=== PATIENT | female | born 1965 ===

== ENCOUNTER 2017-09-28 09:44 | Day surgery (SDC) | payer OTHER ==
[~2017-09-28] VITALS: Ht 160 cm; Wt 76.7 kg
[~2017-09-28 09:44] MED LIST: CHOL10002 PO; CYCL10 PO; DOXE10; LOSA50 PO; METF500C PO; TOPI50 PO
== END 2017-09-28 22:37 | disposition home or self-care (01) ==
LOC: ORSCMMR 09:44 → ORD 10:30 → ORSCMMR 22:37
PROVIDERS: Internal Medicine Gastroenterology
PROC: 0DJD8ZZ Inspection of Lower Intestinal Tract, Via Natural or Artificial Opening Endoscopic (ICD-10-PCS; principal; 2017-09-28 10:30)
DX: Z12.11 Encounter for screening for malignant neoplasm of colon (principal); K57.30 Diverticulosis of large intestine without perforation or abscess without bleeding; I10 Essential (primary) hypertension; E28.2 Polycystic ovarian syndrome; F41.9 Anxiety disorder, unspecified; Z79.899 Other long term (current) drug therapy
CPT/HCPCS: J7120

== ENCOUNTER → 2018-07-17 | Outpatient (CLI) | payer OTHER | LOC: LAB 16:50 → LAB SHORT 16:50 | DX: R21 Rash and other nonspecific skin eruption (principal) | CPT/HCPCS: 87798 ==

== ENCOUNTER 2019-11-03 06:58 | Emergency (ER) | payer OTHER ==
[~2019-11-03] VITALS: Ht 160 cm; Wt 76.2 kg
== END 2019-11-03 08:06 | disposition home or self-care (01) ==
LOC: ER 06:58
DX: T78.1XXA Other adverse food reactions, not elsewhere classified, initial encounter (principal); L29.9 Pruritus, unspecified; R22.0 Localized swelling, mass and lump, head; I10 Essential (primary) hypertension; F41.9 Anxiety disorder, unspecified; Z88.1 Allergy status to other antibiotic agents; Z79.84 Long term (current) use of oral hypoglycemic drugs; Z79.899 Other long term (current) drug therapy
CPT/HCPCS: 99284